=== PATIENT | male | born 1970 | race Caucasian/White ===

== ENCOUNTER 2021-03-28 22:23 | Emergency (ER) | payer MEDICARE, MEDICAID, SELFPAY ==
--- NOTE | ~2021-03-28 | XR_ITS ---
XR chest 2V 03/28/2021 23:05 Indication: Dyspnea Procedure: 2 view chest Comparison: 09/24/2018 Findings: There is a calcified granuloma at the right lung apex. Status post median sternotomy for CA BG. Asymmetric left-sided airspace disease which may represent edema or pneumonia. Small left pleural effusion. There is a right upper lobe pulmonary nodule measuring 8 mm. Impression: 1: Asymmetric left-sided airspace disease which may represent edema or pneumonia. 2: 8mm right upper lung nodule. Consider correlation with CT chest. Reviewed, dictated and finalized at location [facility]. Impression: 1: Asymmetric left-sided airspace disease which may represent edema or pneumoni a. 2: 8mm right upper lung nodule. Consider correlation with CT chest.
[2021-03-28 22:23] VITALS: BP 161/81; PULSE 78; RESP 20; TEMP 36.4; O2SAT 99
--- NOTE | 2021-03-28 22:29 | ED.SOB ---
HPI - SOB/Dyspnea General Chief Complaint: Shortness of Breath/Dyspnea Stated Complaint: unknown Source: patient and RN notes reviewed Mode of arrival: EMS Limitations: no limitations History of Present Illness HPI Narrative: patient states that he was discharged from the longterm where he was admitted for mental health. He was sent home without oxygen that he had been on at the longterm. He said they did not bother to do the 6 minutes walk to qualify him for oxygen home. He does state that he has a history of COPD but is not on any inhalers. MD elicited complaint: shortness of breath Pertinent past history: COPD and diabetes Onset (ago): week(s) (3) Related Data Home Medications Medication Instructions Recorded Confirmed atorvastatin 40 mg PO DAILY 03/28/21 03/28/21 calcium acetate(phosphat bind) 1,334 mg PO DAILY 03/28/21 03/28/21 escitalopram oxalate 20 mg PO DAILY 03/28/21 03/28/21 gabapentin 100 mg PO 2XW 03/28/21 03/28/21 ropinirole 1 mg PO DAILY 03/28/21 03/28/21 Allergies Allergy/AdvReac Type Severity Reaction Status Date / Time No Known Allergies Allergy Unknown Unverified 10/25/15 20:59 Review of Systems Constitutional: Constitutional: Reports chills and Denies fever(s) Cardiovascular: Cardiovascular: Denies chest pain Respiratory: Respiratory: Reports cough and Denies wheezing Gastrointestinal: Gastrointestinal: Denies nausea and Denies vomiting Genitourinary: Genitourinary: Denies hematuria and Denies oliguria [facility] Past Medical History Medical History (Updated 03/29/21 @ 00:58 by Reji Garcia MD) Chronic renal failure COPD (chronic obstructive pulmonary disease) Coronary artery disease CVA (cerebral vascular accident) Depression Dialysis patient Hyperlipidemia Hypertension Morbid obesity Restless leg syndrome Type 2 diabetes mellitus Surgical History Surgical History (Updated 03/28/21 @ 22:45 by Reji Garcia MD) Below knee amputation right Hx of CABG Social History Social History (Updated 03/28/21 @ 22:46 by Reji Garcia MD) Smoking status: Former smoker Exam Const: General: no acute distress, alert and ill appearing chronically Nutritional Appearance: obese morbidly obese (super) Orientation/consciousness: patient oriented x3 Limitations: altered mental status HENMT: Head: normal to inspection Ears: external ears normal Eyes: Conjunctivae: conjunctivae normal Pupils: Equal, round and reactive pupils present EOM: EOMs intact bilaterally Neck: Neck: normal visual inspection Resp: Effort & Inspection: normal respiratory effort Auscultation: clear to auscultation bilaterally Cardio: Rate: regular rate Rhythm: regular rhythm GI: Inspection: Pannus present and obesity GI Palp: Yes Soft to palpation, No Tenderness to palpation present (GI) and No Guarding due to palpation present (GI) Back/Spine/Pelvis: Cervical Spine: cervical ROM normal Thoracic/Lumbar Spine: thoraco-lumbar ROM normal Skin: General skin exam: normal color Lesions: lesion noted macule anterior frontal region size (1.5 cm), consistency soft and fluctuant, surface crusted, indurated and warm and tender Wounds: wounds noted ulceration left lower leg drainage serous and open Neuro: General: patient oriented x3, moves all extremities, no meningeal signs and no focal motor deficits Speech: normal speech Extrem: General: no pedal edema Other: BKA on right Psych: Mental Status: mental status grossly normal Affect: normal affect Attitude: cooperative Thought content: Yes Normal thought content present Course Vital Signs Vital signs: Vital Signs Temperature 36.4 C 03/28/21 22:23 Pulse Rate 78 03/28/21 22:23 Respiratory Rate 20 03/28/21 22:23 Blood Pressure 161/81 H 03/28/21 22:23 Pulse Oximetry 99 03/28/21 22:23 Temperature 36.9 C 03/29/21 02:45 Pulse Rate 73 03/29/21 02:45 Respiratory Rate 20 03/29/21 02:45 Blood Pressure 123/74 03/29
[2021-03-28 23:19] LABS: Alanine Aminotransferase 11 U/L (16-63); Albumin Level 2.8 g/dL (3.4-5.0); Alkaline Phosphatase 207 U/L (46-116); Anion Gap 16 mmol/L (8-16); Aspartate Amino Transferase < 10 U/L (15-37); Bilirubin,Total 0.4 mg/dL (0.00-1.00); Blood Urea Nitrogen 69 mg/dL (7-18); Calcium 8.1 mg/dL (8.5-10.1); Carbon Dioxide 21 mmol/L (21-32); Chloride 100 mmol/L (98-108); Estimated CRCL calculation 13 ml/min; Estimated Glomerular Filt Rate 6; Glucose 266 mg/dL (70-99); NT Pro B Type Natriuretic Pept 10241 pg/mL (0-125); Osmolality Calculated 313 mOsm/kg (285-295); Potassium 4.8 mmol/L (3.5-5.1); Sodium 137 mmol/L (136-145); Total Protein 7.3 g/dL (6.4-8.2)
[2021-03-28 23:36] LABS: CRP 3.9 mg/dL (0.0-0.9); Magnesium 1.8 mg/dL (1.8-2.4)
[2021-03-29 00:40] LABS: SARS-CoV-2 Ag Negative (Negative)
[2021-03-29 01:01] LABS: Basophils Absolute Auto 0.03 K/mm3 (0.00-0.10); Basophils Percent Auto 0.5 % (0.0-1.0); Eosinophils Absolute Auto 0.12 K/mm3 (0.02-0.50); Eosinophils Percent Auto 1.8 % (1.0-6.0); Hematocrit 35.2 % (40.0-54.0); Hemoglobin 11.6 g/dL (14.0-18.0); Immature Granulocyte Absolute 0.05 K/mm3 (0.00-0.00); Immature Granulocyte Percent A 0.8 % (0.0-0.0); Lymphocytes Absolute Auto 0.69 K/mm3 (1.10-4.50); Lymphocytes Percent Auto 10.6 % (18.0-42.0); Mean Corpuscular Volume 97.2 fL (78.0-102.0); Mean Platelet Volume 11.7 fl (8.7-11.0); Monocytes Percent Auto 7.6 % (2.0-11.0); Neutrophils Absolute Auto 5.2 K/mm3 (1.7-7.2); Neutrophils Percent Auto 78.7 % (50.0-70.0); Platelet Count Result 92 K/mm3 (150-420); Red Blood Count 3.62 M/mm3 (4.70-6.10); Red Cell Distribution Width 15.1 % (11.6-14.4); White Blood Count 6.5 K/mm3 (4.8-10.8)
--- NOTE | 2021-03-29 01:26 | PC.NURSE ---
PT RESTING PER COT. HEAD OF BED ELEVATED FOR COMFORT. PILLOW PROPPED BETWEEN LOWER EXTREMITIES. GAUZE DRESSING APPLIED TO LEFT LOWER LEG, WEEPING NOTED.
--- NOTE | 2021-03-29 02:17 | PC.NURSE ---
PT SLEEPING, NO DISTRESS. EASILY AWAKENS. NOTIFIED OF BED PLACEMENT AND TRANSFER
[2021-03-29 02:45] VITALS: BP 123/74; PULSE 73; RESP 20; TEMP 36.9; O2SAT 99
== END 2021-03-29 03:04 | disposition short-term general hospital (02) ==
PROVIDERS: Emergency Provider Emergency Medicine
DX: I50.23 Acute on chronic systolic (congestive) heart failure (principal); N18.5 Chronic kidney disease, stage 5; Z20.822 Contact with and (suspected) exposure to COVID-19
CPT/HCPCS: 36415; 71046; 80053; 83735; 83880; 85025; 85055; 86140; 87426; 99284; 99285; C9803

== ENCOUNTER 2021-09-26 07:42 | Emergency (ER) | payer BC, SELFPAY ==
[2021-09-26] VITALS (11 sets, daily range): BP systolic 126–177; BP diastolic 71–108; PULSE 99–113; RESP 12–24; TEMP 35.8–36.1; O2SAT 95–100
--- NOTE | ~2021-09-26 | CT_ITS ---
EXAMINATION: CT chest abdomen pelvis wo con DATE: 09/26/2021 09:20 INDICATION: Shortness of breath. Distended abdomen. TECHNIQUE: Computed tomography (CT) of the chest, abdomen, and pelvis was performed without intraveno us contrast. Automated exposure control and iterative reconstruction technique were employed. Exam do se: 1934.03 mGy-cm total exam DLP. COMPARISON: 03/28/2021 2 view chest FINDINGS: CHEST CT: Status post sternotomy and coronary bypass graft surgery. Cardiomegaly. Extensive coronary artery sheryl cifications. No pericardial effusion. Nonspecific mild bilateral mediastinal lymph node prominence, possibly reactive. There is left lower lobe infiltrate/atelectasis and mild left pleural effusion. There is patchy groundglass density scattered throughout both lungs which may be due to small airways disease or pneumonia. ABDOMEN/PELVIS CT: Soft tissue detail is very limited due to morbid obesity. There is minimal predominantly perihepatic and left and right paracolic gutter ascites. There is splenomegaly; the spleen measures up to 18.5 cm maximal vertical dimension. No gross hepatic , splenic, pancreatic or renal space-occupying mass lesion is evident. Normal morphology of the adrenal glands. No urinary tract calculus or hydroureteronephrosis is evident. There is calcification of the abdominal aorta but no aneurysm. No intraperitoneal or retroperitoneal or pelvic mass lesion or adenopathy is evident. Prominent bilateral hip osteoarthritis. No bowel obstruction or intraperitoneal free air is evident. Approximately 2.7 cm wide fat-containing umbilical hernia. Diffuse idiopathic skeletal hyperostosis of the thoracic spine. Mild degenerative change of the lumba r spine. IMPRESSION: Limited examination due to morbid obesity Left lower lobe infiltrate/atelectasis and mild left pleural effusion. Pneumonia is suggested Patchy groundglass density throughout both lungs which may be due to small airways disease and/or pne umonia Probable reactive mild mediastinal lymph node prominence Mild ascites Reviewed, dictated and finalized at [facility]. Reviewed, dictated and finalized at location [facility]. UE MAKER IMPRESSION: Limited examination due to morbid obesity Left lower lobe infiltrate/atelectasis and mild left pleural effusion. Pneumoni a is suggested Patchy groundglass density throughout both lungs which may be due to small airw ays disease and/or pneumonia Probable reactive mild mediastinal lymph node prominence Mild ascites
--- NOTE | 2021-09-26 07:52 | ECG_ITS ---
Measurements Intervals [place] Rate: 115 P: 43 OH: 200 QRS: 109 QRSD: 107 T: 13 QT: 339 QTc: 470 Interpretive Statements SINUS OR ECTOPIC ATRIAL TACHYCARDIA RIGHT AXIS DEVIATION LOW QRS VOLTAGE IN LIMB LEADS BORDERLINE ST-T WAVE ABNORMALITY- INFERIOR LEADS BASELINE ARTIFACT- V1 ABNORMAL ECG Electronically Signed On 09-27-2021 6:25:00 [employer]ARM OWNER OPERATOR by Keith Dawkins D.O.
[2021-09-26] MEDS: ONDANSETRON INJ 4 MG/2 ML VIAL IV PUSH (08:06)
[2021-09-26] MEDS: METOPROLOL TARTRATE INJ 5 MG/5 ML VIAL 2.5 MG IV PUSH ×2 (08:06→10:45)
--- NOTE | 2021-09-26 08:17 | ED.SOB ---
HPI - SOB/Dyspnea General Chief Complaint: Shortness of Breath/Dyspnea Stated Complaint: ambulance Time Seen by Provider: 09/26/21 07:46 Source: patient, EMS and RN notes reviewed Mode of arrival: EMS Limitations: no limitations History of Present Illness MD elicited complaint: shortness of breath and chest pain (right upper chest wall only, mild) Pertinent past history: COPD and congestive heart failure Onset (ago): hour(s) (4) Context: occurred during exertion Timing: constant Severity: moderate Exacerbating factors: nothing Relieving factors: oxygen Known history of: congestive heart failure Associated symptoms: chest pain Treatment prior to arrival: oxygen Related Data Home oxygen amount: 2 liters Home Medications Medication Instructions Recorded Confirmed atorvastatin 40 mg PO DAILY 03/28/21 09/26/21 escitalopram oxalate 20 mg PO DAILY 03/28/21 09/26/21 gabapentin 100 mg PO BID 03/28/21 09/26/21 ropinirole 3 mg PO HS 03/28/21 09/26/21 amiodarone 200 mg PO DAILY 09/26/21 09/26/21 apixaban [Eliquis] 5 mg PO DAILY 09/26/21 09/26/21 insulin glargine [Basaglar KwikPen 40 unit SUBCUT DAILY 09/26/21 09/26/21 U-100 Insulin] ipratropium-albuterol [Combivent 1 puff INHALATION QID 09/26/21 09/26/21 Respimat] isosorbide mononitrate 20 mg PO BID 09/26/21 09/26/21 pantoprazole 40 mg PO DAILY 09/26/21 09/26/21 Allergies Allergy/AdvReac Type Severity Reaction Status Date / Time No Known Allergies Allergy Unknown Unverified 09/26/21 08:07 Review of Systems Review of Systems: All systems reviewed & are unremarkable except as noted in HPI and below Respiratory: Respiratory: Reports dyspnea Gastrointestinal: Gastrointestinal: Reports nausea Comments: distended abdomen Musculoskeletal: Musculoskeletal: Reports arthralgias (right BKA) PMFSH Past Medical History Medical History Chronic renal failure COPD (chronic obstructive pulmonary disease) Coronary artery disease CVA (cerebral vascular accident) Depression Dialysis patient Hyperlipidemia Hypertension Morbid obesity Restless leg syndrome Type 2 diabetes mellitus Surgical History Surgical History Below knee amputation right Hx of CABG Social History Social History Smoking status: Former smoker Exam Const: General: no acute distress and alert Nutritional Appearance: obese Orientation/consciousness: patient oriented x3 Limitations: no limitations HENMT: Ears: external ears normal and TM's normal bilaterally General nose exam: Normal external nose present and Normal nares present Mouth: Yes moist mucous membranes Eyes: Conjunctivae: conjunctivae normal Pupils: Equal, round and reactive pupils present EOM: EOMs intact bilaterally Neck: Neck: normal visual inspection and no lymphadenopathy Chest: Chest palpation & inspection: normal inspection of the chest Resp: Effort & Inspection: normal respiratory effort Cardio: Rate: regular rate Rhythm: regular rhythm GI: Inspection: distended GI Palp: Yes Soft to palpation and No Tenderness to palpation present (GI) Percussion: Yes dullness to percussion and Yes tympanic to percussion : General: Yes bladder normal to palpation and Yes no CVA tenderness Testes: Testes normal Back/Spine/Pelvis: Back: no CVA tenderness Skin: General skin exam: normal color Rashes: no rashes Neuro: General: patient oriented x3, moves all extremities, no meningeal signs, no focal motor deficits and CN's II-XI intact bilaterally Extrem: General: edema (left leg edema. right BKA.) Psych: Mental Status: mental status grossly normal Affect: normal affect Attitude: cooperative Thought content: Yes Normal thought content present Course Course Emergency Course: Pt was in no acute distress. Reevaluation(s) Reevaluation #1: VSS. pain-free in
[2021-09-26 08:26] LABS: Base Excess ABG -5.7 mmol/L (0-2); HCO3 ABG 20.9 mmol/L (23-29); Oxygen Content ABG 12.8 %vol (16.0-22.0); Oxygen Saturation ABG 95.7 % (95-97); Oxyhemoglobin 94.7 % (94-100); PCO2 ABG 45.8 mmHg (35-45); PO2 ABG 92.3 mmHg (80-90); Total Hemoglobin 9.5 g/dL (12.0-18.0); pH ABG 7.28 (7.35-7.45)
[2021-09-26 08:29] LABS: Basophils Absolute Auto 0.03 K/mm3 (0.00-0.10); Basophils Percent Auto 0.6 % (0.0-1.0); Eosinophils Absolute Auto 0.04 K/mm3 (0.02-0.50); Eosinophils Percent Auto 0.8 % (1.0-6.0); Hemoglobin 8.9 g/dL (14.0-18.0); Immature Granulocyte Absolute 0.04 K/mm3 (0.00-0.00); Immature Granulocyte Percent A 0.8 % (0.0-0.0); Immature Platelet Fraction Pct 5.3 % (1.0-7.0); Lymphocytes Percent Auto 5.9 % (18.0-42.0); Mean Corpuscular HGB Conc 28.7 g/dL (32.0-36.0); Mean Corpuscular Hemoglobin 28.4 pg (27.0-31.0); Monocytes Absolute Auto 0.32 K/mm3 (0.10-0.90); Monocytes Percent Auto 6.3 % (2.0-11.0); Neutrophils Absolute Auto 4.4 K/mm3 (1.7-7.2); Neutrophils Percent Auto 85.6 % (50.0-70.0); Platelet Count Result 99 K/mm3 (150-420); Red Blood Count 3.13 M/mm3 (4.70-6.10); Red Cell Distribution Width 15.9 % (11.6-14.4); White Blood Count 5.1 K/mm3 (4.8-10.8)
[2021-09-26 08:32] LABS: Device NASAL CANNULA; Modified Allen's Test Pass; Site Drawn RIGHT RADIAL
[2021-09-26 08:40] LABS: SARS-CoV-2 Ag Negative (Negative)
[2021-09-26 08:50] LABS: Alanine Aminotransferase 8 U/L (16-63); Albumin Level 3.3 g/dL (3.4-5.0); Alkaline Phosphatase 176 U/L (46-116); Anion Gap 12 mmol/L (8-16); Aspartate Amino Transferase < 10 U/L (15-37); Bilirubin,Total 0.5 mg/dL (0.00-1.00); Blood Urea Nitrogen 59 mg/dL (7-18); Calcium 8.7 mg/dL (8.5-10.1); Carbon Dioxide 24 mmol/L (21-32); Chloride 99 mmol/L (98-108); Estimated CRCL calculation 18 ml/min; Estimated Glomerular Filt Rate 9; NT Pro B Type Natriuretic Pept 16800 pg/mL (0-125); Osmolality Calculated 317 mOsm/kg (285-295); Potassium 5.1 mmol/L (3.5-5.1); Sodium 135 mmol/L (136-145); Total Protein 8.2 g/dL (6.4-8.2); Troponin I 15.2 ng/L (0.00-60.4)
[2021-09-26 08:54] LABS: Glucose 476 mg/dL (70-99)
--- NOTE | 2021-09-26 08:59 | PC.NURSE ---
ERP made aware of critical Creatinine of 6.45 and BS of 476
[2021-09-26] MEDS: INSULIN HUMAN REGULAR (*BKC) 100 UNITS/ML 14 UNITS IV PUSH (09:34)
[2021-09-26] MEDS: SODIUM CHLORIDE 0.9% IV 500 ML 999 ML IV CONT (09:34)
[2021-09-26 10:13] LABS: Acetone Negative (Negative)
[2021-09-26 10:15] LABS: Lactic Acid Reflex 2.2 mmol/L (0.4-2.0)
--- NOTE | 2021-09-26 10:20 | PC.NURSE ---
RN calling multiple facilities for bed placement, checked with [facility], [facility], [facility], [facility], [facility], [facility], and [facility] No luck at this time.
[2021-09-26] MEDS: ALBUTEROL SULFATE (*SP) INHALER 4 PUFF INHALATION ×3 (10:43→20:30)
[2021-09-26] MEDS: methylPREDNISolone SOD SUCC 125 MG VIAL IV PUSH (10:43)
[2021-09-26] MEDS: SODIUM BICARBONATE 8.4% 50 MEQ/50 ML SYRINGE IV PUSH (10:43)
[2021-09-26] MEDS: UMECLIDINIUM BROMIDE 62.5 MCG ELLIPTA 1 PUFF INHALATION (10:43)
[2021-09-26] MEDS: FUROSEMIDE INJ 100 MG/10 ML VIAL 80 MG IV PUSH (10:44)
[2021-09-26 10:58] LABS: Glucose Point of Care 382 mg/dl (65-105)
[2021-09-26 11:07] LABS: Add Urine Microscopic? YES; Appearance Urine Cloudy (Clear); Bilirubin Urine 1+ (Negative); Blood Urine 3+ (Negative); Color Urine Red (Yellow); Glucose Urine UA 1+ (Negative); Ketones Urine 1+ (Negative); Leukocyte Esterase Ur 2+ (Negative); Nitrate Urine Negative (Negative); Protein Urine 3+ (Negative); Specific Grav Ur 1.025 (1.010-1.020); Urobilinogen Urine 0.2 mg/dL (0.2-1.0); pH Urine 5.5 (5.0-8.0)
[2021-09-26 11:20] LABS: Bacteria Urine 4+ /hpf; RBC Urine >75 /hpf (0-2); Squamous Epithelial Cell Urine None seen /hpf (Few); WBC Urine >75 /hpf (0-3)
--- NOTE | 2021-09-26 12:30 | PC.NURSE ---
RN discussed with Bill Butcher Supervisor that RN was unable to get beds anywhere. RN spoke with [facility], [facility], [facility], [facility], [facility], [facility], [facility], [facility], [facility]. All facilities had no beds. Pt requires dialysis and we do not have dialysis. RN spoke with Olu Butcher Supervisor and [facility] that we have no dailysis and asked if we could please add our pt to there dialysis list for tomorrow. He states he will add him to the list and leave a note about the situation. ERP made aware.
[2021-09-26 13:10] LABS: Reflex Lactic Acid Yes or No Add Lactic
--- NOTE | 2021-09-26 13:30 | PC.NURSE ---
Patient admitted to room 204, transferred to bed from [facility]. Patient has right BKA with prosthetic limb. Prosthesis in room with patient. Patient alert, oriented to room and call light.
--- NOTE | 2021-09-26 15:40 | PC.NURSE ---
Blood glucose 385
[2021-09-26 15:41] LABS: Glucose Point of Care 385 mg/dl (65-105)
--- NOTE | 2021-09-26 16:30 | PC.NURSE ---
Humalog insulin order changed from 14 units IV push to 8 units sub Q per sliding scale. Sliding scale insulin order not active until 8am on 09/27. Administered 8 units humalog insulin sub Q to left upper outer arm. Cosigned per Adina Alexander RN
[2021-09-26] MEDS: ISOSORBIDE MONONITRATE 20 MG TABLET PO (17:09)
[2021-09-26] MEDS: GABAPENTIN 100 MG CAPSULE PO (17:09)
--- NOTE | 2021-09-26 20:00 | PC.NURSE ---
Patient is on cardiac telemetry and continuous pulse ox. Patient's telemetry strip printed at 1900 indicated overall rhythm of sinus tachycardia. His heart rate is 109; his CA segment is 0.2; his QRS complex is 0.08; and his QT segment is 0.34.
[2021-09-26] MEDS: rOPINIRole HCL 1 MG TABLET 3 MG PO (20:31)
[2021-09-26 21:38] LABS: Glucose Point of Care > 450 mg/dl (65-105)
--- NOTE | 2021-09-26 21:45 | PC.NURSE ---
Patient's blood glucose level for HS was 452. Patient states that at home he takes 80 units of long acting insulin at bedtime. Dr. Gilman was notified, and he ordered 40 units of Glargine to be administered at 2100. The medication was administered as soon as the pharmacy verified it.
[2021-09-26] MEDS: INSULIN GLARGINE (*BKC) 100 UNITS/ML 40 UNITS SUB-Q (22:10)
[2021-09-27] VITALS (7 sets, daily range): BP systolic 138–146; BP diastolic 76–90; PULSE 103–108; RESP 20–24; TEMP 35.8–36.2; O2SAT 96–98
--- NOTE | 2021-09-27 | PC.NURSE ---
Addendum entered by Perla Cristina RN 09/27/21 05:05: A review of the monitor alarms from 1900 to midnight yielded 2 instances of Sp O2 below 90 (82, 88); and pair of PVCs (2 times). Original Note: Patient is on telemetry with continuous pulse ox. His telemetry strip completed at 23:00 on 09/26/2021 indicated overall rhythm of sinus tachycardia. His heart rate was 107; his TN segment was 0.2; his QRS complex was 0.08; and his QT segment was 0.35.
--- NOTE | 2021-09-27 02:30 | PC.NURSE ---
Completed patient rounding. Patient is resting quietly in bed. He needs pulled up in bed. With combination of putting bed in reverse trendelenburg, patient pulling himself, and three nurses, he was successfully repositioned. Patient stated that he did not need anything else at this time.
--- NOTE | 2021-09-27 04:00 | PC.NURSE ---
Patient has cardiac telemetry and continuous pulse ox. His telemetry strip dates 09/27/2021 at 0301 yielded a heart rate of 107 and a heart rhythm of sinus tachycardia. His SC segment measured o.2; his QRS complex measured 0.08; and his QT segment measured 0.35. A review of the monitor alarms since midnight shows 1 instance heart rate above 120 (124); pair of PVCs (3 times); irregular heart rate; and 1 instance of Sp O2 below 90 (88).
--- NOTE | 2021-09-27 06:00 | PC.NURSE ---
Patient was weighed using the bed scale. His weight is 174.2 kg, or 384.04 pounds.
[2021-09-27 06:09] LABS: Basophils Absolute Auto 0.01 K/mm3 (0.00-0.10); Basophils Percent Auto 0.2 % (0.0-1.0); Hematocrit 28.8 % (40.0-54.0); Hemoglobin 8.5 g/dL (14.0-18.0); Immature Granulocyte Absolute 0.04 K/mm3 (0.00-0.00); Immature Granulocyte Percent A 0.7 % (0.0-0.0); Lymphocytes Absolute Auto 0.17 K/mm3 (1.10-4.50); Lymphocytes Percent Auto 3.2 % (18.0-42.0); Mean Corpuscular HGB Conc 29.5 g/dL (32.0-36.0); Mean Corpuscular Hemoglobin 28.5 pg (27.0-31.0); Mean Corpuscular Volume 96.6 fL (78.0-102.0); Mean Platelet Volume 12.1 fl (8.7-11.0); Monocytes Absolute Auto 0.15 K/mm3 (0.10-0.90); Monocytes Percent Auto 2.8 % (2.0-11.0); Neutrophils Percent Auto 93.1 % (50.0-70.0); Platelet Count Result 106 K/mm3 (150-420); Red Blood Count 2.98 M/mm3 (4.70-6.10); Red Cell Distribution Width 15.2 % (11.6-14.4); White Blood Count 5.4 K/mm3 (4.8-10.8)
[2021-09-27] MEDS: ALBUTEROL SULFATE (*SP) INHALER 4 PUFF INHALATION ×2 (06:19→09:55)
[2021-09-27 06:22] LABS: Albumin Level 3.4 g/dL (3.4-5.0); Alkaline Phosphatase 150 U/L (46-116); Anion Gap 15 mmol/L (8-16); Aspartate Amino Transferase < 10 U/L (15-37); Bilirubin,Total 0.5 mg/dL (0.00-1.00); Blood Urea Nitrogen 76 mg/dL (7-18); Calcium 7.8 mg/dL (8.5-10.1); Carbon Dioxide 18 mmol/L (21-32); Chloride 97 mmol/L (98-108); Estimated CRCL calculation 15 ml/min; Estimated Glomerular Filt Rate 8; Osmolality Calculated 314 mOsm/kg (285-295); Sodium 130 mmol/L (136-145); Total Protein 7.9 g/dL (6.4-8.2)
[2021-09-27 06:35] LABS: Lactic Acid 1.2 mmol/L (0.4-2.0)
[2021-09-27 06:40] LABS: Alanine Aminotransferase < 6 U/L (16-63); Glucose 496 mg/dL (70-99); Potassium 6.6 mmol/L (3.5-5.1)
[2021-09-27] MEDS: INSULIN GLARGINE (*BKC) 100 UNITS/ML 40 UNITS SUB-Q (08:51)
[2021-09-27] MEDS: PANTOPRAZOLE 40 MG TABLET PO (08:53)
[2021-09-27] MEDS: APIXABAN 2.5 MG TABLET 5 MG PO (08:53)
[2021-09-27] MEDS: GABAPENTIN 100 MG CAPSULE PO (08:53)
[2021-09-27] MEDS: ESCITALOPRAM OXALATE 10 MG TABLET 20 MG PO (08:53)
[2021-09-27] MEDS: ATORVASTATIN 40 MG TABLET PO (08:53)
[2021-09-27] MEDS: AMIODARONE HCL 200 MG TABLET PO (08:53)
[2021-09-27] MEDS: ISOSORBIDE MONONITRATE 20 MG TABLET PO (08:57)
[2021-09-27] MEDS: UMECLIDINIUM BROMIDE 62.5 MCG ELLIPTA 1 PUFF INHALATION (08:58)
--- NOTE | 2021-09-27 09:21 | P.PNCROSS_ITS ---
Event Note Event Note Event Note: 51-year-old man with type 2 diabetes and end-stage renal disease on dialysis Monday [facility] admitted as an ER hold yesterday for shortness of breath. He states he came in because he felt too weak to get up and was worried he would be able to get to dialysis. The patient had been admitted to [facility] 2 weeks prior for fluid overload and states that he was feeling overloaded again. He denies any vomiting, fever, chest pain, abdominal pain other than the sensation of being fluid overloaded. This morning the patient's blood sugar was 496. Patient states that recently he has been taking the entire Basaglar pen at nighttime (80 units). He takes no other insulin. I discussed his care with the dialysis nurse at [facility] he states that he has been over his target weight. PE: Alert and oriented. Mild respiratory distress. Pitting edema in the extremities. Regular rate and rhythm without murmur. Decrease lung sounds throughout with few basilar rales. Patient is in dire need of dialysis as his sodium is 130 and his potassium is 6.6 today. When he was brought to the emergency department his oxygen equipment did not come with him. He does not have his oxygen for transfer to his dialysis center and then from his dialysis center to his home ([facility] transit usually takes him). They have oxygen at the dialysis center that he can use. Calls were made to [facility] Boy[facility] and [facility] law enforcement as well as his 3 hours a day Monday through Monday home caregiver (via agency) and they all state that they cannot go into his home to retrieve his oxygen and take it to his dialysis center.
--- NOTE | 2021-09-27 10:15 | PC.NURSE ---
Patient discharged from floor, transported by [facility] going to [facility] in [place]. Patient alert and oriented. [facility].
--- NOTE | 2021-09-27 10:15 | PC.NURSE ---
Belongings including clothing and prosthetic leg sent with patient via ambulance
[2021-10-12 10:28] LABS: Glucose Point of Care > 450 mg/dl (65-105)
== END 2021-09-27 10:15 | disposition home or self-care (01) ==
LOC: CHSED 08:08 → CHS2ND 12:55
PROVIDERS: Emergency Provider Emergency Medicine
DX: E11.22 Type 2 diabetes mellitus with diabetic chronic kidney disease (principal); N18.9 Chronic kidney disease, unspecified; J44.9 Chronic obstructive pulmonary disease, unspecified; J18.9 Pneumonia, unspecified organism; I50.9 Heart failure, unspecified; Z20.822 Contact with and (suspected) exposure to COVID-19; Z79.4 Long term (current) use of insulin; E78.5 Hyperlipidemia, unspecified; I10 Essential (primary) hypertension; Z87.891 Personal history of nicotine dependence
CPT/HCPCS: 36415; 36600; 71250; 74176; 80053; 81001; 82010; 82805; 82948; 83605; 83880; 84484; 85025; 85055; 87040; 87426; 93005; 96361; 96365; 96375; 96376; 99283; 99284; A9270; C9803; J0696; J1815; J1940; J2405; J2930; J7040

== ENCOUNTER 2022-03-30 00:02 | Inpatient (IN) | payer BC, SELFPAY ==
[2022-03-30] VITALS (24 sets, daily range): BP systolic 99–151; BP diastolic 37–73; PULSE 26–87; RESP 18–79; TEMP 36.3–36.8; O2SAT 97–99; BMI 45.1
--- NOTE | ~2022-03-30 | US_ITS ---
EXAMINATION: US scrotum doppler DATE: 03/30/2022 10:46 INDICATION: Painful scrotum TECHNIQUE: Testicular sonogram utilizing grayscale and Doppler COMPARISON: None. FINDINGS: The right testis measures 3.2 x 2.4 x 1.8 cm. The left testis measures 2.3 x 2.1 x 1.4 cm. Symmetric normal grayscale appearance to both testes. There is normal vascular flow to both testes. The right e pididymis is normal with normal vascular flow. The left epididymis is normal with normal vascular ivan w. There is no varicocele or hydrocele. IMPRESSION: 1. Normal scrotal ultrasound. Reviewed, dictated and finalized at location A.
--- NOTE | 2022-03-30 00:11 | ADMGEN ---
This patient, Umesh Sanchez, was admitted to Medical Room 260-01. Patient/family oriented to hospital policies and general routines including ID bracelet, bed and alarms, visiting hours, pain management, procedures, bathroom and other care routines, personal items, smoking policy, room service/diet, and visiting hours. Information on how to activate the Rapid Response Team has been discussed. Patient/Family are encouraged to report perceived risks to care and to ask questions if they do not understand what they are told or what they should do.
[2022-03-30 02:38] LABS: Basophils Percent Auto 0.6 % (0.2-1.2); Eosinophils Absolute Auto 0.1 K/mm3 (0-0.3); Hematocrit 28.7 % (42.0-52.0); Hemoglobin 8.9 g/dL (14.0-18.0); Immature Granulocyte Absolute 0.04 K/mm3 (0.00-0.031); Immature Granulocyte Percent A 0.8 % (0-0.5); Lymphocytes Absolute Auto 0.42 K/mm3 (0.9-3.2); Lymphocytes Percent Auto 8.3 % (18.3-44.2); Mean Corpuscular Hemoglobin 28.3 pg (26-34); Mean Corpuscular Volume 91.1 fl (80-100); Mean Platelet Volume 10.2 fl (7.4-10.4); Monocytes Absolute Auto 0.4 K/mm3 (0.1-0.6); Monocytes Percent Auto 7.7 % (2.6-8.5); Neutrophils Absolute Auto 4.1 K/mm3 (1.3-6.7); Neutrophils Percent Auto 80.6 % (45.5-73.1); Platelet Count Result 123 k/mm3 (150-375); Red Blood Count 3.15 M/mm3 (4.6-6.20); Red Cell Distribution Width 15.3 % (11.5-14.5); White Blood Count 5.1 K/mm3 (4.5-10.0)
[2022-03-30 03:13] LABS: Anion Gap 16 mmol/L (8-16); Blood Urea Nitrogen 56 mg/dL (9-20); Calcium 8.2 mg/dL (8.4-10.2); Carbon Dioxide 20 mmol/L (22-30); Chloride 100 mmol/L (98-107); Estimated CRCL calculation 16 ml/min; Estimated Glomerular Filt Rate 8; Glucose 201 mg/dL (65-110); Potassium 4.4 mmol/L (3.4-5.0); Sodium 136 mmol/L (137-145)
--- NOTE | 2022-03-30 07:08 | PM.CNNEP ---
Assessment and Plan Additional Plan 1. Umesh has end-stage renal disease. Has been on dialysis for about 4 years. This is most likely due to diabetes and hypertension. He had dialysis on Monday. Will do dialysis today. I notified the dialysis company and wrote orders. His potassium is okay so will do him on a 3K bath. 2. The patient has anemia of chronic kidney disease. His hemoglobin is in the 8. I will order some EPO. 3. The patient has renal osteodystrophy. Will check a renal panel tomorrow to check his phosphorus. 4. The patient has hypertension. His blood pressure is under good control. He is not on any blood pressure medications here or at home. 5. The patient has weakness. Perhaps this is due to poor nutrition. Hospitalists will be looking at this. 6. The patient has diabetes. Treatment per hospitalists. History of Present Illness Reason for Consult Consult date: 03/31/22 Chief Complaint Chief complaint: cellulitis History of Present Illness Narrative: Umesh is a very pleasant 51-year-old gentleman who has multiple medical problems including end-stage renal disease on dialysis on Wednesdays and Fridays at [place], hypertension, diabetes, no retinopathy, coronary disease status post bypass, valve replacement but he can not remember which 1, neuropathy, right [id number] amputation, left toe ray amputation, GERD, restless legs, COPD, hyperlipidemia, on Eliis but he can not remember why. The patient went to the emergency room with weakness. He also had some diarrhea.. He says that he also has a sore in the back of his scrotum which has been bothering him. He went to dialysis on Monday and did okay. Generally he gets around in a motorized wheelchair. Yesterday the patient could not get out of bed and continue to have poor intake and was very weak so went to the emergency room. There he was evaluated felt he needed admission but they do not do dialysis at that facility so he was transferred to [facility]. Currently patient still has some discomfort in the scrotum. His left leg is still weak. This is what he uses mostly although he does have a prosthesis and usually can transfer himself from bed to chair. His dialysis on Monday went pretty well. They got all as fluid off. He does not really feel like he has much fluid on now. Review of Systems Constitutional: Constitutional: Reports no additional constitutional complaints Eyes: Eyes: Reports no additional eye complaints ENT: Reports system reviewed and no additional complaints, except as documented Cardiovascular: Cardiovascular: Reports no additional cardiovascular complaints Respiratory: Respiratory: Reports no additional respiratory complaints Gastrointestinal: Gastrointestinal: Reports no additional gastrointestinal complaints Genitourinary: Genitourinary: Reports no additional male genitourinary complaints Musculoskeletal: Musculoskeletal: Reports no additional musculoskeletal complaints Integumentary/Breasts: Skin/Breast: Reports system reviewed and no additional complaints, except as docu Neurologic: Reports system reviewed and no additional complaints, except as documented Psychiatric: Psychiatric: Reports no additional psychiatric complaints Endocrine: Endocrine: Reports no additional endocrine complaints PMFSH Past Medical History Medical History Chronic renal failure COPD (chronic obstructive pulmonary disease) Coronary artery disease CVA (cerebral vascular accident) Depression Dialysis patient Hyperlipidemia Hypertension Morbid obesity Restless leg syndrome Type 2 diabetes mellitus Surgical History Surgical History Below knee amputation right Hx of CABG Family History Family History Father Acute myocardial infarction Diabetes bryant
[2022-03-30 07:48] LABS: Glucose Point of Care 299 mg/dl (65-105)
--- NOTE | 2022-03-30 07:50 | PM.IMHP ---
H&P: HPI History of Present Illness Date/Time: 03/30/22 07:50 Chief Complaint: Intractable nausea and vomiting Physical debility Narrative: Patient is a 51-year-old male with a past medical history of end-stage renal disease currently on dialysis on Monday and Fridays in [place], hypertension, diabetes mellitus type 2, CAD status post CABG, valve replacement, COPD, right [id number] amputation, left toe amputation, GERD, restless leg, hyperlipidemia and hypertension. Of note the patient is on Eliquis, patient does not know the reason-patient did have a valve replacement and history of a CABG? He presented to [facility] due to intractable nausea, vomiting and weakness. Patient also endorses a sore scrotum as well. Patient was able to go to dialysis this past Monday and did well in therapy. Patient generally mobilizes with a wheelchair, however the patient was unable to do had a bed. Patient does have a prosthesis and can easily transfers himself from the bed to the chair usually. The patient has had poor intake and has become progressively weak therefore prompted him to come to the emergency department. However, the outlying facility does not do dialysis therefore he was transferred to [facility]. Upon admission labs was obtained. Patient has a hemoglobin of 8.9, hematocrit 28.7, WBC 5.1 and platelet count of 123. Patient sodium was 136, potassium 4.4, BUN 56, creatinine 7.1, glucose 201 and calcium of 8.2. Patient was started on IV antibiotics during the night these will deescalated. Unsure if patient has any acute infection. No leukocytosis. ?Scrotal ultrasound negative.? Will consult Wound Care for sharing to the posterior aspect of the scrotum. Review of Systems Review of Systems: All systems reviewed & are unremarkable except as noted in HPI and below PMFSH Past Medical History Medical History Chronic renal failure COPD (chronic obstructive pulmonary disease) Coronary artery disease CVA (cerebral vascular accident) Depression Dialysis patient Hyperlipidemia Hypertension Morbid obesity Restless leg syndrome Type 2 diabetes mellitus Surgical History Surgical History Below knee amputation right Hx of CABG Family History Family History Father Acute myocardial infarction Diabetes mellitus Mother Acute myocardial infarction Diabetes mellitus Other Hypertension Social History Social History Smoking status: Light tobacco smoker Tobacco type: cigarettes and e-cigarettes/vaping Additional smoking assessment comments: stated smokes occasionally Alcohol intake: never Substance use: never Substance use type: does not use Spiritual care concerns: No Meds Home Medications and Allergies Home Medications Medication Instructions Recorded Confirmed Type atorvastatin 40 mg tablet 40 mg PO HS 03/28/21 03/30/22 History escitalopram oxalate 20 mg tablet 20 mg PO DAILY 03/28/21 03/30/22 History gabapentin 100 mg capsule 100 mg PO BID 03/28/21 03/30/22 History ropinirole 1 mg tablet 3 mg PO HS 03/28/21 03/30/22 History apixaban 5 mg tablet (Eliquis) 5 mg PO DAILY 09/26/21 03/30/22 History insulin glargine 100 unit/mL (3 40 unit subcut HS 09/26/21 03/30/22 History mL) subcutaneous pen (Basaglar KwikPen U-100 Insulin) pantoprazole 40 mg tablet,delayed 40 mg PO DAILY 09/26/21 03/30/22 History release calcium acetate 667 mg tablet 1,334 mg PO TID 03/30/22 03/30/22 History insulin lispro 100 unit/mL 15 unit subcut TID 03/30/22 03/30/22 History subcutaneous pen (Humalog KwikPen (U-100) Insulin) Allergies Allergy/AdvReac Type Severity Reaction Status Date / Time No Known Allergies Allergy Unknown Unverified 09/26/21 08:0
[2022-03-30 08:14] LABS: Hepatitis B Surface Antigen Negative (Negative)
[2022-03-30 09:41] LABS: Glucose Point of Care 377 mg/dl (65-105)
[2022-03-30] MEDS: GABAPENTIN 100 MG CAPSULE PO ×2 (09:41→21:57)
[2022-03-30] MEDS: ESCITALOPRAM OXALATE 10 MG TABLET 20 MG PO (09:41)
[2022-03-30] MEDS: INSULIN ASPART (*BKC) 100 UNITS/ML SUB-Q ×3 (09:41→17:47)
[2022-03-30 09:56] LABS: Basophils Percent Auto 0.5 % (0.2-1.2); Eosinophils Absolute Auto 0.1 K/mm3 (0-0.3); Eosinophils Percent Auto 1.6 % (0-4.4); Hematocrit 27.2 % (42.0-52.0); Hemoglobin 8.5 g/dL (14.0-18.0); Immature Granulocyte Absolute 0.04 K/mm3 (0.00-0.031); Immature Granulocyte Percent A 0.9 % (0-0.5); Lymphocytes Absolute Auto 0.33 K/mm3 (0.9-3.2); Lymphocytes Percent Auto 7.7 % (18.3-44.2); Mean Corpuscular HGB Conc 31.3 g/dl (32-36); Mean Corpuscular Hemoglobin 28.4 pg (26-34); Mean Platelet Volume 10.6 fl (7.4-10.4); Monocytes Absolute Auto 0.3 K/mm3 (0.1-0.6); Monocytes Percent Auto 7.7 % (2.6-8.5); Neutrophils Absolute Auto 3.5 K/mm3 (1.3-6.7); Neutrophils Percent Auto 81.6 % (45.5-73.1); Platelet Count Result 113 k/mm3 (150-375); Red Blood Count 2.99 M/mm3 (4.6-6.20); Red Cell Distribution Width 15.1 % (11.5-14.5); White Blood Count 4.3 K/mm3 (4.5-10.0)
[2022-03-30 10:12] LABS: Alanine Aminotransferase 7 U/L (6-50); Albumin Level 3.4 g/dL (3.5-5.1); Alkaline Phosphatase 109 U/L (38-126); Anion Gap 16 mmol/L (8-16); Aspartate Amino Transferase 10 U/L (17-59); Bilirubin,Total 0.6 mg/dL (0.2-1.3); Blood Urea Nitrogen 55 mg/dL (9-20); Calcium 7.8 mg/dL (8.4-10.2); Carbon Dioxide 18 mmol/L (22-30); Chloride 98 mmol/L (98-107); Estimated CRCL calculation 15 ml/min; Estimated Glomerular Filt Rate 7; Glucose 406 mg/dL (65-110); Potassium 4.5 mmol/L (3.4-5.0); Sodium 132 mmol/L (137-145)
--- NOTE | 2022-03-30 11:09 | PCDIET ---
Dietitian consult for poor nutrition. Spoke with patient today. He did eat 95% of his breakfast today. Diet order: Renal Dialysis. Spoke with MD today about adding Diabetic diet to diet orders. Glu 406 today. Patient states weight has been stable. He had no diet questions or concerns. Patient instructions added to discharge plans. Thank you for the consult.
[2022-03-30 11:42] LABS: Glucose Point of Care 392 mg/dl (65-105)
--- NOTE | 2022-03-30 12:10 | PM.EVENT ---
Event Note Event Note Event Note: Late Entry Patient is on HD. hiral it well. early in the treatment his bp dropped a bit so UF was stopped. now bp is better and UF was applied again. Dialysis nurse called his home unit and this is a common occurence. will go for about 1 liter removal asuming his bp remains good. seen at 12:10pm on 03/20/22
[2022-03-30 12:40] LABS: Glucose Point of Care 272 mg/dl (65-105)
[2022-03-30] MEDS: CALCIUM ACETATE 667 MG TABLET 1334 MG PO ×2 (12:44→17:47)
[2022-03-30] MEDS: INSULIN ASPART (*BKC) 100 UNITS/ML 15 UNITS SUB-Q ×2 (12:45→17:47)
[2022-03-30] MEDS: EPOETIN ALFA-EPBX 10,000 UNITS/ML VIAL 10000 UNITS IV PUSH (13:20)
[2022-03-30] MEDS: SODIUM CHLORIDE 0.9% IV 1,000 ML 999 ML IV CONT (13:20)
[2022-03-30 16:52] LABS: Glucose Point of Care 208 mg/dl (65-105)
[2022-03-30 20:19] LABS: Vancomycin Random 28.9 ug/mL (10-20)
[2022-03-30 21:20] LABS: Glucose Point of Care 182 mg/dl (65-105)
[2022-03-30] MEDS: HYDROcodone/acetaminophen (*CRX) 5-325 MG TABLET 1 TAB PO (21:55)
[2022-03-30] MEDS: rOPINIRole HCL 1 MG TABLET 3 MG PO (21:57)
[2022-03-30] MEDS: INSULIN GLARGINE (*BKC) 100 UNITS/ML 40 UNITS SUB-Q (21:57)
[2022-03-30] MEDS: ATORVASTATIN 40 MG TABLET PO (21:57)
[2022-03-31] VITALS (9 sets, daily range): BP systolic 103–126; BP diastolic 25–45; PULSE 73–79; RESP 16–20; TEMP 36.3–36.6; O2SAT 93–100
[2022-03-31 05:36] LABS: Toxigenic C. Diff NEGATIVE (NEGATIVE)
[2022-03-31] MEDS: TOLNAFTATE 1% POWDER 45 GM BTL 1 APPLIC TOPICAL ×3 (05:43→21:26)
[2022-03-31 05:44] LABS: Basophils Percent Auto 0.5 % (0.2-1.2); Eosinophils Absolute Auto 0.1 K/mm3 (0-0.3); Eosinophils Percent Auto 2.6 % (0-4.4); Hematocrit 28.4 % (42.0-52.0); Hemoglobin 8.6 g/dL (14.0-18.0); Immature Granulocyte Absolute 0.04 K/mm3 (0.00-0.031); Immature Granulocyte Percent A 0.9 % (0-0.5); Lymphocytes Absolute Auto 0.52 K/mm3 (0.9-3.2); Lymphocytes Percent Auto 12.2 % (18.3-44.2); Mean Corpuscular HGB Conc 30.3 g/dl (32-36); Mean Corpuscular Volume 92.5 fl (80-100); Mean Platelet Volume 10.6 fl (7.4-10.4); Monocytes Absolute Auto 0.5 K/mm3 (0.1-0.6); Monocytes Percent Auto 11.1 % (2.6-8.5); Neutrophils Absolute Auto 3.1 K/mm3 (1.3-6.7); Neutrophils Percent Auto 72.7 % (45.5-73.1); Platelet Count Result 127 k/mm3 (150-375); Red Blood Count 3.07 M/mm3 (4.6-6.20); Red Cell Distribution Width 15.3 % (11.5-14.5); White Blood Count 4.3 K/mm3 (4.5-10.0)
[2022-03-31 06:38] LABS: Alanine Aminotransferase 6 U/L (6-50); Albumin Level 3.3 g/dL (3.5-5.1); Alkaline Phosphatase 99 U/L (38-126); Anion Gap 12 mmol/L (8-16); Aspartate Amino Transferase 10 U/L (17-59); Bilirubin,Total 0.5 mg/dL (0.2-1.3); Blood Urea Nitrogen 33 mg/dL (9-20); Calcium 8.1 mg/dL (8.4-10.2); Carbon Dioxide 28 mmol/L (22-30); Chloride 95 mmol/L (98-107); Estimated CRCL calculation 19 ml/min; Estimated Glomerular Filt Rate 10; Glucose 236 mg/dL (65-110); Magnesium 1.8 mg/dL (1.6-2.3); Potassium 3.7 mmol/L (3.4-5.0); Sodium 135 mmol/L (137-145)
--- NOTE | 2022-03-31 06:49 | PM.IMPN ---
Progress Note: A&P Assessment and Plan (1) Chronic renal failure: Code(s): N18.9 - Chronic kidney disease, unspecified Status: Acute Assessment and Plan: 2/2 dependence on renal dialysis (2) Dialysis patient: Code(s): Z99.2 - Dependence on renal dialysis Status: Acute Assessment and Plan: Patient is found dialysis for approximately 4 years nephrology was consulted for further management, appreciate his recommendations Patient will receive dialysis today Patient's hemoglobin is 8, therefore Nephrology has ordered EPO Renal osteodystrophy, renal panel will be obtained, check phosphorus patient receives dialysis on Monday and Monday, patient did receive dialysis on Monday and became hypotensive although he was able to finish treatment. Nephrology following. (3) COPD (chronic obstructive pulmonary disease): Qualifiers: COPD type: unspecified COPD Qualified Code(s): J44.9 - Chronic obstructive pulmonary disease, unspecified Code(s): J44.9 - Chronic obstructive pulmonary disease, unspecified Status: Acute Assessment and Plan: Monitor vital signs, I&Os, neuro status and patient is a fall risk Monitor serum electrolytes, cultures and CBC Monitor Oxygen saturation, Oxygen via NC; wean oxygen as tolerated, keep SpO2 greater than 88% Continue home medications Stable (4) Type 2 diabetes mellitus: Qualifiers: Chronic kidney disease stage: on chronic dialysis Diabetes mellitus complication detail: with chronic kidney disease Diabetes mellitus complication status: with kidney complications Diabetes mellitus fdc insulin use: with fdc use Qualified Code(s): E11.22 - Type 2 diabetes mellitus with diabetic chronic kidney disease; N18.6 - End stage renal disease; Z79.4 - halfway (current) use of insulin; Z99.2 - Dependence on renal dialysis Code(s): E11.9 - Type 2 diabetes mellitus without complications Status: Acute Assessment and Plan: Insulin Lispro sliding scale, Accu-checks qAc and HS and Hold oral hypoglycemics Obtain a HgbA1c (5) Morbid obesity: Code(s): E66.01 - Morbid (severe) obesity due to excess calories Status: Acute Assessment and Plan: Registered dietitian has been consulted (6) Severe protein-calorie malnutrition: Code(s): E43 - Unspecified severe protein-calorie malnutrition Status: Acute Assessment and Plan: Patient has poor nutritional status, consult registered dietitian for further educational Patient has had diabetic (7) Physical debility: Code(s): R53.81 - Other malaise Status: Acute Assessment and Plan: Consult physical therapy and occupational therapy to eval and treat (8) Scrotal pain: Code(s): N50.82 - Scrotal pain Status: Acute Assessment and Plan: Patient complained of scrotal pain, patient does appear to have shearing 2 posterior aspect of the scrotum. Wound Care was consulted Ultrasound of the scrotum was ordered,-negative IV antibiotics discontinued Subjective Date/time seen: 03/31/22 06:49 patient doing well today. He did receive dialysis yesterday and apparently he did become moderately hypotensive although this was corrected with dialysis. Patient normally has this type of response. Patient reports of feeling alert and oriented this morning and has able to perform ADLs with minimal mobilization. Patient continues to feel weak, physical therapy and occupational therapy has been ordered. Discussed possible placement to skilled facility with the patient, he may be interested. Will discuss this with case management. Patient has received home health. Pending possible discharge Soon Review of Systems Review of Systems: All systems reviewed & are unremarkable except as noted in HPI and below Exam Narrative: General: No acute distress. With the Ob Mental Status: Awake, alert and oriented t
[2022-03-31 07:19] LABS: Lactic Acid Reflex 1.6 mmol/L (0.7-2.0)
[2022-03-31 07:45] LABS: Glucose Point of Care 218 mg/dl (65-105)
[2022-03-31 07:47] LABS: Albumin Level 3.4 g/dL (3.5-5.1); Anion Gap 14 mmol/L (8-16); Blood Urea Nitrogen 35 mg/dL (9-20); Calcium 7.9 mg/dL (8.4-10.2); Carbon Dioxide 26 mmol/L (22-30); Chloride 96 mmol/L (98-107); Estimated CRCL calculation 19 ml/min; Estimated Glomerular Filt Rate 10; Glucose 243 mg/dL (65-110); Phosphorus 4.9 mg/dL (2.5-4.5); Potassium 3.8 mmol/L (3.4-5.0); Sodium 136 mmol/L (137-145)
[2022-03-31] MEDS: CALCIUM ACETATE 667 MG TABLET 1334 MG PO ×3 (08:14→16:40)
[2022-03-31] MEDS: APIXABAN 5 MG TABLET PO (08:14)
[2022-03-31] MEDS: INSULIN ASPART (*BKC) 100 UNITS/ML SUB-Q (08:15)
[2022-03-31] MEDS: GABAPENTIN 100 MG CAPSULE PO ×2 (08:15→21:24)
[2022-03-31] MEDS: PANTOPRAZOLE 40 MG TABLET PO (08:15)
[2022-03-31] MEDS: ESCITALOPRAM OXALATE 10 MG TABLET 20 MG PO (08:15)
[2022-03-31] MEDS: INSULIN ASPART (*BKC) 100 UNITS/ML 15 UNITS SUB-Q ×2 (08:16→11:43)
[2022-03-31 11:38] LABS: Glucose Point of Care 169 mg/dl (65-105)
[2022-03-31] MEDS: LOPERAMIDE HCL 2 MG CAPSULE PO (11:43)
--- NOTE | 2022-03-31 12:59 | PM.PNNEP ---
Progress Note: A&P Additional Plan 1. Umesh has end-stage renal disease. Has been on dialysis for about 4 years. This is most likely due to diabetes and hypertension. He had dialysis yesterday. will get HD tomorrow. volume status is okay. some chronic changes 2. The patient has anemia of chronic kidney disease. His hemoglobin is 8.6. On EPO. 3. The patient has renal osteodystrophy. Phos 4.9. 4. The patient has hypertension. His blood pressure is under good control. He is not on any blood pressure medications here or at home. 5. The patient has weakness. Perhaps this is due to poor nutrition and deconditioning. Hospitalists will be looking at this. he may go to outpt rehab 6. The patient has diabetes. Treatment per hospitalists. Subjective Date/time seen: 03/31/22 12:59 Interval history: pt feels about the same. still somewhat weak. HD went well yesterday Review of Systems Cardiovascular: Cardiovascular: Reports no additional cardiovascular complaints Respiratory: Respiratory: Reports no additional respiratory complaints Gastrointestinal: Gastrointestinal: Reports no additional gastrointestinal complaints Genitourinary: Genitourinary: Reports no additional male genitourinary complaints Exam Narrative: WDWN in NAD skin no rash head ncat lungs clear cor reg no rub abd BS+ nontender and soft ext 1+ edemaleft leg with chronic venous stasis changes. Objective Data Vital Signs Vital Signs: Vital Signs - 24 hr 03/30/22 13:10 03/30/22 13:30 03/30/22 13:40 Temperature Pulse Rate 73 70 87 Respiratory Rate Blood Pressure 102/57 L 124/54 L 151/67 H Pulse Oximetry Oxygen Delivery Oxygen Flow Rate 03/30/22 14:03 03/30/22 14:20 03/30/22 14:41 Temperature Pulse Rate 77 75 73 Respiratory Rate Blood Pressure 99/47 L 117/51 L 106/49 L Pulse Oximetry Oxygen Delivery Oxygen Flow Rate 03/30/22 15:00 03/30/22 15:18 03/30/22 15:35 Temperature 36.8 C Pulse Rate 77 84 84 Respiratory Rate 22 H Blood Pressure 123/42 L 122/73 122/73 Pulse Oximetry Oxygen Delivery Oxygen Flow Rate 03/30/22 16:30 03/30/22 19:30 03/30/22 23:24 Temperature 36.4 C L 36.6 C 36.4 C L Pulse Rate 76 86 86 Respiratory Rate 18 18 18 Blood Pressure 131/39 L 122/40 L 135/40 L Pulse Oximetry 99 99 99 Oxygen Delivery Oxygen Flow Rate 03/30/22 21:50 03/31/22 03:51 03/31/22 08:00 Temperature 36.5 C 36.3 C L Pulse Rate 73 74 Respiratory Rate 18 16 Blood Pressure 108/45 L 107/31 L Pulse Oximetry 100 98 Oxygen Delivery Nasal Cannula Oxygen Flow Rate 3 03/31/22 10:44 Temperature Pulse Rate Respiratory Rate Blood Pressure Pulse Oximetry Oxygen Delivery Nasal Cannula Oxygen Flow Rate 2 Intake/Output Intake/Output: Intake & Output 03/28/22 03/29/22 03/30/22 03/31/22 23:59 23:59 23:59 23:59 Intake Total 1020 880 Output Total 2400 Balance -1380 880 Meds/Results Medications: Active Medications Generic Name Dose Route Start Last Admin Trade Name Freq PRN Reason Stop Dose Admin Acetaminophen 650 mg 03/30/22 00:36 Acetaminophen 325 Mg Tablet PO Q4H PRN Mild Pain (1-3) or Fever Hydrocodone Bitart/Acetaminophen 1 tab 03/30/22 00:36 03/30/22 21:55 Hydrocodone/Acetaminophen (*Crx) 5-325 Mg Tablet PO 1 tab Q4H PRN Administration Moderate Pain (4-6) Al Hydrox/Mg Hydrox/Simethicone 30 ml 03/30/22 00:36 Mag Hydrox/Al Hydrox/Simeth 30 Ml Udc PO QID PRN Dyspepsia Apixaban 5 mg 03/31/22 09:00 03/31/22 08:14 Apixaban 5 Mg Tablet PO 5 mg DAILY FREDI Administration Atorvastatin Calcium 40 mg 03/30/22 21:00 03/30/22 21:57 Atorvastatin 40 Mg Tablet PO 40 mg HS FREDI Administration Calcium Acetate 1,334 mg 03/30/22 12:00 03/31/22 11:43 Calcium Acetate 667 Mg Tablet PO 1,334 mg TIDWM FREDI Administration Dextrose 12.5 gm 03/30/22 09:02 De
[2022-03-31 13:55] LABS: Glucose Point of Care 153 mg/dl (65-105)
[2022-03-31 16:18] LABS: Glucose Point of Care 133 mg/dl (65-105)
[2022-03-31] MEDS: SACCHAROMYCES BOULARDII 250 MG CAPSULE PO (16:40)
[2022-03-31] MEDS: INSULIN ASPART (*BKC) 100 UNITS/ML 7 UNITS SUB-Q (16:40)
[2022-03-31] MEDS: HYDROcodone/acetaminophen (*CRX) 5-325 MG TABLET 1 TAB PO ×2 (16:47→21:43)
[2022-03-31 20:53] LABS: Glucose Point of Care 176 mg/dl (65-105)
[2022-03-31] MEDS: ATORVASTATIN 40 MG TABLET PO (21:24)
[2022-03-31] MEDS: INSULIN GLARGINE (*BKC) 100 UNITS/ML 40 UNITS SUB-Q (21:24)
[2022-03-31] MEDS: rOPINIRole HCL 1 MG TABLET 3 MG PO (21:25)
[2022-04-01] VITALS (19 sets, daily range): BP systolic 115–180; BP diastolic 32–109; PULSE 68–92; RESP 12–18; TEMP 36.1–37; O2SAT 88–95
--- NOTE | 2022-04-01 06:47 | PM.DS ---
DS: Admitting Diagnosis Discharge Date 04/01/2022 Admitting Diagnosis Chronic kidney disease Dependence on renal dialysis COPD Physical debility Diabetes mellitus type 2 Ulceration to scrotum DS: Discharge Diagnosis Discharge Diagnosis (1) Chronic renal failure: Code(s): N18.9 - Chronic kidney disease, unspecified Status: Acute Assessment and Plan: 2/2 dependence on renal dialysis (2) Dialysis patient: Code(s): Z99.2 - Dependence on renal dialysis Status: Acute Assessment and Plan: Patient is found dialysis for approximately 4 years nephrology was consulted for further management, appreciate his recommendations Patient will receive dialysis today Patient's hemoglobin is 8, therefore Nephrology has ordered EPO Renal osteodystrophy, renal panel will be obtained, check phosphorus patient receives dialysis on Monday and Monday, patient did receive dialysis on Monday and became hypotensive although he was able to finish treatment. Nephrology following. (3) COPD (chronic obstructive pulmonary disease): Qualifiers: COPD type: unspecified COPD Qualified Code(s): J44.9 - Chronic obstructive pulmonary disease, unspecified Code(s): J44.9 - Chronic obstructive pulmonary disease, unspecified Status: Acute Assessment and Plan: Monitor vital signs, I&Os, neuro status and patient is a fall risk Monitor serum electrolytes, cultures and CBC Monitor Oxygen saturation, Oxygen via NC; wean oxygen as tolerated, keep SpO2 greater than 88% Continue home medications Stable (4) Type 2 diabetes mellitus: Qualifiers: Chronic kidney disease stage: on chronic dialysis Diabetes mellitus complication detail: with chronic kidney disease Diabetes mellitus complication status: with kidney complications Diabetes mellitus assisted insulin use: with terminal computer operator use Qualified Code(s): E11.22 - Type 2 diabetes mellitus with diabetic chronic kidney disease; N18.6 - End stage renal disease; Z79.4 - snf (current) use of insulin; Z99.2 - Dependence on renal dialysis Code(s): E11.9 - Type 2 diabetes mellitus without complications Status: Acute Assessment and Plan: Insulin Lispro sliding scale, Accu-checks qAc and HS and Hold oral hypoglycemics Obtain a HgbA1c (5) Morbid obesity: Code(s): E66.01 - Morbid (severe) obesity due to excess calories Status: Acute Assessment and Plan: Registered dietitian has been consulted (6) Severe protein-calorie malnutrition: Code(s): E43 - Unspecified severe protein-calorie malnutrition Status: Acute Assessment and Plan: Patient has poor nutritional status, consult registered dietitian for further educational Patient has had diabetic (7) Physical debility: Code(s): R53.81 - Other malaise Status: Acute Assessment and Plan: Consult physical therapy and occupational therapy to eval and treat (8) Scrotal pain: Code(s): N50.82 - Scrotal pain Status: Acute Assessment and Plan: Patient complained of scrotal pain, patient does appear to have shearing 2 posterior aspect of the scrotum. Wound Care was consulted Ultrasound of the scrotum was ordered,-negative IV antibiotics discontinued DS: Summary Hospital Course Reason for hospitalization: Ulceration of scrotum Hospital Course: Patient is a 51-year-old male with past medical history of end-stage renal disease currently on dialysis on Monday and Fridays in [place], hypertension, diabetes mellitus type 2, CAD status post CABG, valve replacement and COPD as well as a right [id number] amputation with left toe amputation GERD and restless leg syndrome. Patient currently is anticoagulated on Eliquis. The patient reported that he started this medication after having COVID. A physician in [place] started him on this medication. Discussed with the patient having a conversa
[2022-04-01 08:30] LABS: Glucose Point of Care 277 mg/dl (65-105)
[2022-04-01] MEDS: SACCHAROMYCES BOULARDII 250 MG CAPSULE PO (08:31)
[2022-04-01] MEDS: CALCIUM ACETATE 667 MG TABLET 1334 MG PO ×2 (08:31→14:13)
[2022-04-01] MEDS: INSULIN ASPART (*BKC) 100 UNITS/ML 15 UNITS SUB-Q (08:32)
[2022-04-01] MEDS: ESCITALOPRAM OXALATE 10 MG TABLET 20 MG PO (08:32)
[2022-04-01] MEDS: APIXABAN 5 MG TABLET PO (08:32)
[2022-04-01] MEDS: PANTOPRAZOLE 40 MG TABLET PO (08:32)
[2022-04-01] MEDS: GABAPENTIN 100 MG CAPSULE PO (08:32)
[2022-04-01] MEDS: INSULIN ASPART (*BKC) 100 UNITS/ML SUB-Q (08:32)
[2022-04-01] MEDS: TOLNAFTATE 1% POWDER 45 GM BTL 1 APPLIC TOPICAL (08:33)
[2022-04-01 09:20] LABS: Basophils Percent Auto 0.4 % (0.2-1.2); Eosinophils Absolute Auto 0.1 K/mm3 (0-0.3); Eosinophils Percent Auto 2.1 % (0-4.4); Hematocrit 28.9 % (42.0-52.0); Hemoglobin 8.7 g/dL (14.0-18.0); Immature Granulocyte Absolute 0.05 K/mm3 (0.00-0.031); Immature Granulocyte Percent A 1.1 % (0-0.5); Lymphocytes Absolute Auto 0.43 K/mm3 (0.9-3.2); Lymphocytes Percent Auto 9.1 % (18.3-44.2); Mean Corpuscular HGB Conc 30.1 g/dl (32-36); Mean Corpuscular Hemoglobin 28.2 pg (26-34); Mean Corpuscular Volume 93.5 fl (80-100); Mean Platelet Volume 10.2 fl (7.4-10.4); Monocytes Absolute Auto 0.4 K/mm3 (0.1-0.6); Monocytes Percent Auto 7.8 % (2.6-8.5); Neutrophils Absolute Auto 3.8 K/mm3 (1.3-6.7); Neutrophils Percent Auto 79.5 % (45.5-73.1); Platelet Count Result 122 k/mm3 (150-375); Red Blood Count 3.09 M/mm3 (4.6-6.20); Red Cell Distribution Width 15.5 % (11.5-14.5); White Blood Count 4.7 K/mm3 (4.5-10.0)
[2022-04-01] MEDS: LOPERAMIDE HCL 2 MG CAPSULE PO (09:33)
[2022-04-01 09:36] LABS: Alanine Aminotransferase 7 U/L (6-50); Albumin Level 3.7 g/dL (3.5-5.1); Alkaline Phosphatase 103 U/L (38-126); Anion Gap 17 mmol/L (8-16); Aspartate Amino Transferase 9 U/L (17-59); Bilirubin,Total 0.6 mg/dL (0.2-1.3); Blood Urea Nitrogen 43 mg/dL (9-20); Calcium 8.5 mg/dL (8.4-10.2); Carbon Dioxide 24 mmol/L (22-30); Chloride 91 mmol/L (98-107); Estimated CRCL calculation 15 ml/min; Estimated Glomerular Filt Rate 8; Glucose 321 mg/dL (65-110); Phosphorus 6.3 mg/dL (2.5-4.5); Potassium 4.1 mmol/L (3.4-5.0); Sodium 132 mmol/L (137-145)
[2022-04-01] MEDS: EPOETIN ALFA-EPBX 10,000 UNITS/ML VIAL 10000 UNITS IV PUSH (10:13)
[2022-04-01] MEDS: SODIUM CHLORIDE 0.9% IV 1,000 ML 999 ML IV CONT (10:14)
--- NOTE | 2022-04-01 11:27 | PM.PNNEP ---
Progress Note: A&P Additional Plan 1. Umesh has end-stage renal disease. Has been on dialysis for about 4 years. This is most likely due to diabetes and hypertension. He is getting dialysis now. volume status is okay. 2. The patient has anemia of chronic kidney disease. His hemoglobin is 8.6. On EPO. 3. The patient has renal osteodystrophy. Phos 4.9. 4. The patient has hypertension. His blood pressure is under good control. He is not on any blood pressure medications here or at home. 5. The patient has weakness. Perhaps this is due to poor nutrition and deconditioning. He has been using a motorized wheelchair which tends to make people weaker as the become more dependent on it. He is going to talk with his primary personal protection specialist when he gets back to the dialysis unit to see if further workup needs to happen. 6. The patient has diabetes. Treatment per hospitalists. Subjective Date/time seen: 04/01/22 11:27 Interval history: pt feels better. He is eager for discharge today after dialysis. He is on dialysis now, tolerating it well. Blood pressure is doing pretty well. He is getting some fluid off. He was seen at 10:30 a.m. Exam Narrative: WDWN in NAD skin no rash head ncat lungs clear bilaterally cor reg no rub or gallop abd BS+ nontender and soft ext 1+ edemaleft leg with chronic venous stasis changes. Objective Data Vital Signs Vital Signs: Vital Signs - 24 hr 03/31/22 12:00 03/31/22 14:22 03/31/22 16:00 Temperature 36.6 C 36.6 C Pulse Rate 79 76 Respiratory Rate 16 17 Blood Pressure 126/45 L 103/25 L Pulse Oximetry 93 100 Oxygen Delivery Nasal Cannula Oxygen Flow Rate 2 03/31/22 17:23 03/31/22 18:47 03/31/22 20:06 Temperature Pulse Rate 75 Respiratory Rate 16 Blood Pressure 118/39 L Pulse Oximetry 95 94 100 Oxygen Delivery Nasal Cannula Nasal Cannula Oxygen Flow Rate 2 2 03/31/22 23:31 03/31/22 21:00 04/01/22 03:29 Temperature 36.4 C 36.4 C Pulse Rate 79 70 Respiratory Rate 20 12 Blood Pressure 103/33 L 130/32 L Pulse Oximetry 94 95 Oxygen Delivery Nasal Cannula Oxygen Flow Rate 2 04/01/22 09:54 04/01/22 09:45 04/01/22 09:45 Temperature 37.0 C Pulse Rate 77 73 Respiratory Rate 18 Blood Pressure 132/102 H 164/60 H Pulse Oximetry Oxygen Delivery Oxygen Flow Rate 2 04/01/22 10:15 04/01/22 10:35 04/01/22 10:55 Temperature Pulse Rate 71 69 69 Respiratory Rate Blood Pressure 177/60 H 162/38 H 165/71 H Pulse Oximetry Oxygen Delivery Oxygen Flow Rate 04/01/22 11:15 Temperature Pulse Rate 68 Respiratory Rate Blood Pressure 180/72 H Pulse Oximetry Oxygen Delivery Oxygen Flow Rate Intake/Output Intake/Output: Intake & Output 03/29/22 03/30/22 03/31/22 04/01/22 23:59 23:59 23:59 23:59 Intake Total 1020 1680 1030 Output Total 2400 0 Balance -1380 1680 1030 Meds/Results Medications: Active Medications Generic Name Dose Route Start Last Admin Trade Name Freq PRN Reason Stop Dose Admin Acetaminophen 650 mg 03/30/22 00:36 Acetaminophen 325 Mg Tablet PO Q4H PRN Mild Pain (1-3) or Fever Hydrocodone Bitart/Acetaminophen 1 tab 03/30/22 00:36 03/31/22 21:43 Hydrocodone/Acetaminophen (*Crx) 5-325 Mg Tablet PO 1 tab Q4H PRN Administration Moderate Pain (4-6) Al Hydrox/Mg Hydrox/Simethicone 30 ml 03/30/22 00:36 Mag Hydrox/Al Hydrox/Simeth 30 Ml Udc PO QID PRN Dyspepsia Apixaban 5 mg 03/31/22 09:00 04/01/22 08:32 Apixaban 5 Mg Tablet PO 5 mg DAILY FREDI Administration Atorvastatin Calcium 40 mg 03/30/22 21:00 03/31/22 21:24 Atorvastatin 40 Mg Tablet PO 40 mg HS FREDI Administration Calcium Acetate 1,334 mg 03/30/22 12:00 04/01/22 08:31 Calcium Acetate 667 Mg Tablet PO 1,334 mg TIDWM FREDI Administration Dextrose 12.5 gm 03/30/22 09:02 Dextrose 50% 25 Gm/50 Ml Syringe IV PUSH PRN
--- NOTE | 2022-04-01 12:50 | PCPTNOTE ---
The patient treatment was not able to be completed on 04/01/2022 due to out of room for dialysis. Will plan to continue treatment per plan of care.
[2022-04-01 14:18] LABS: Glucose Point of Care 123 mg/dl (65-105)
== END 2022-04-01 16:00 | disposition home or self-care (01) | DRG 682 ==
PROVIDERS: Family Medicine; Internal Medicine Nephrology; Admitting Provider Internal Medicine; PCP Internal Medicine; Visit Provider Nurse Practitioner Family
DX: I12.0 Hypertensive chronic kidney disease with stage 5 chronic kidney disease or end stage renal disease (principal); N18.6 End stage renal disease; E43 Unspecified severe protein-calorie malnutrition; Z68.42 Body mass index [BMI] 45.0-49.9, adult; E11.22 Type 2 diabetes mellitus with diabetic chronic kidney disease; S31.30XA Unspecified open wound of scrotum and testes, initial encounter; D63.1 Anemia in chronic kidney disease; N25.0 Renal osteodystrophy; Z99.2 Dependence on renal dialysis; R53.1 Weakness; R53.81 Other malaise; J44.9 Chronic obstructive pulmonary disease, unspecified; E78.5 Hyperlipidemia, unspecified; I25.10 Atherosclerotic heart disease of native coronary artery without angina pectoris; K21.9 Gastro-esophageal reflux disease without esophagitis; E11.40 Type 2 diabetes mellitus with diabetic neuropathy, unspecified; F32.A Depression, unspecified; F17.210 Nicotine dependence, cigarettes, uncomplicated; F17.290 Nicotine dependence, other tobacco product, uncomplicated; Z79.01 Long term (current) use of anticoagulants; Z79.4 Long term (current) use of insulin; Z86.16 Personal history of COVID-19; I95.3 Hypotension of hemodialysis; E66.01 Morbid (severe) obesity due to excess calories; Z95.1 Presence of aortocoronary bypass graft; Z89.511 Acquired absence of right leg below knee; Z89.422 Acquired absence of other left toe(s); Z95.2 Presence of prosthetic heart valve; Z86.73 Personal history of transient ischemic attack (TIA), and cerebral infarction without residual deficits; X58.XXXA Exposure to other specified factors, initial encounter
CPT/HCPCS: 36415; 76870; 80048; 80053; 80069; 80202; 82948; 83605; 83735; 84100; 85025; 87340; 87493; 93976; 97161; 97165; A9270; G0257; J1644; J1815; J2543; J3370; J7030; Q5105